=== PATIENT | female | born 1990 | race African-American/Black ===

== ENCOUNTER 2023-05-08 14:00 | Emergency (ER) | payer SELFPAY ==
[2023-05-08 16:37] LABS: SARS-CoV-2 NAA Rapid Test DETECTED (NotDetected)
== END 2023-05-08 17:04 | disposition home or self-care (01) ==
LOC: ERS 14:00
DX: U07.1 COVID-19 (principal); R09.81 Nasal congestion; I10 Essential (primary) hypertension; Z79.899 Other long term (current) drug therapy
CPT/HCPCS: 99283

== ENCOUNTER 2023-05-12 20:42 | Emergency (ER) | payer SELFPAY | END 2023-05-12 21:15 | disposition home or self-care (01) | LOC: ERS 20:42 | DX: U07.1 COVID-19 (principal); I10 Essential (primary) hypertension | CPT/HCPCS: 87635; 99283 ==

== ENCOUNTER 2024-05-18 23:58 | Emergency (ER) | payer OTHER, SELFPAY | END 2024-05-19 00:15 | disposition home or self-care (01) | LOC: ERS 23:58 | DX: S09.90XA Unspecified injury of head, initial encounter (principal); I10 Essential (primary) hypertension; W01.10XA Fall on same level from slipping, tripping and stumbling with subsequent striking against unspecified object, initial encounter | CPT/HCPCS: 99282 ==